=== PATIENT | female | born 1990 | race Caucasian/White ===

== ENCOUNTER 2018-06-06 11:29 | Emergency (ER) | payer OTHER ==
[~2018-06-06] VITALS: Ht 170.2 cm; Wt 149.7 kg
[~2018-06-06 11:29] MED LIST: BACTRIM DS TAB1 EACH PO; NOHOMEMEDICATIONS
[2018-06-06 11:52] LABS: ABSOLUTE BASOPHILS 0.1 thou/uL (0.0-0.2); ABSOLUTE EOSINOPHILS 0.1 thou/uL (0.0-0.7); ABSOLUTE LYMPHOCYTES 2.7 thou/uL (0.8-5.3); ABSOLUTE MONOCYTES 0.6 thou/uL (0.0-1.2); ABSOLUTE NEUTROPHILS 6.8 thou/uL (1.6-8.1); BASOPHILS 0.6 %; EOSINOPHILS 1.4 %; HEMATOCRIT 42.6 % (37.0-47.0); HEMOGLOBIN 14.2 gm/dL (12.0-15.0); LYMPHOCYTES 26.4 %; MCH 29.6 pg (26.0-34.0); MCHC 33.5 g/dL (28.0-37.0); MCV 88.4 fL (80.0-100.0); MONOCYTES 5.6 %; MPV 7.5 fl. (7.2-11.1); NUCLEATED RBCS 0 /100WBC; PLATELET COUNT* 282 thou/uL (150-400); RBC 4.81 mil/uL (4.20-5.00); RDW-CV 13.9 % (10.5-14.5); WBC 10.3 thou/uL (4.0-11.0)
[2018-06-06 12:06] LABS: ANION GAP 10 mmol/L (7-16); BUN 7 mg/dL (7-18); CALCIUM 8.6 mg/dL (8.5-10.1); CHLORIDE 108 mmol/L (98-107); CO2 24 mmol/L (21-32); CREATININE 0.6 mg/dL (0.6-1.3); GLUCOSE 103 mg/dL (70-99); POTASSIUM 3.8 mmol/L (3.5-5.1); SODIUM 142 mmol/L (136-145)
[2018-06-06 12:13] LABS: ALBUMIN 3.3 g/dL (3.4-5.0); ALKALINE PHOSPHATASE 87 U/L (46-116); LIPASE 135 U/L (73-393); MAGNESIUM 2.1 mg/dL (1.8-2.4); SGOT 279 U/L (15-37); SGPT 354 U/L (30-65); TOTAL BILIRUBIN 0.2 mg/dL (<0.1-1.0); TOTAL PROTEIN 7.1 g/dL (6.4-8.2); TROPONIN-I LEVEL <0.06 ng/mL (<0.06)
[2018-06-06 14:40] VITALS: BP 132/83
--- NOTE | 2018-06-07 11:04 | EKG ---
[place] [address] ELECTROCARDIOGRAM REPORT Name: BUTCH VILLAFANA Eli Room: [facility]#: [id number] Admission: 06/06/18 Attend Phys: Discharge: 06/06/18 Date of : [birth year] Report #: [id number] THIS REPORT FOR: //name// [facility] ED Test Date: 2018-06-06 Test Time: 11:32:21 Pat Name: BUTCH VILLAFANA Department: Room: Gender: F Vector Control Assistant: MAREK : 1990 Requested By: Ramesh Hoang Order Number: [id number] MD: Theron Lockhart Measurements Intervals [place] Rate: 101 P: 37 [place]: 149 QRS: 61 QRSD: 101 T: 22 QT: 346 QTc: 449 Interpretive Statements Sinus tachycardia Baseline wander in lead(s) V2 No previous ECG available for comparison Electronically Signed On 06-07-2018 11:04:17 DIGITAL CARTOGRAPHER by Theron Lockhart [email or web address] <ELECTRONICALLY SIGNED> By: Theron Lockhart MD, [facility] 06/07/18 1104 1132 1132 Theron Lockhart MD, FACC /EPI
--- NOTE | 2018-06-07 11:06 | EKG ---
[place] [address] ELECTROCARDIOGRAM REPORT Name: LEDYBUTCH Benitez Room: [facility]#: [id number] Admission: 06/06/18 Attend Phys: Discharge: 06/06/18 Date of : [birth year] Report #: [id number] THIS REPORT FOR: //name// [facility] ED Test Date: 2018-06-06 Test Time: 13:57:21 Pat Name: BUTCH VILLAFANA Department: Room: Gender: F Gang Punch Operator: Crystal COLEMAN : 1990 Requested By: Ramesh Hoang Order Number: [id number] MD: Theron Lockhart Measurements Intervals [place] Rate: 86 P: 6 [place]: 147 QRS: 57 QRSD: 92 T: 19 QT: 392 QTc: 475 Interpretive Statements Sinus rhythm Baseline wander in lead(s) V5 Electronically Signed On 06-07-2018 11:06:36 SPACE CONTROL SUPERVISOR by Theron Lockhart [email or web address] <ELECTRONICALLY SIGNED> By: Theron Lockhart MD, [facility] 06/07/18 1106 1357 1357 Theron Lockhart MD, FACC /EPI
== END 2018-06-06 14:40 ==
LOC: M.ERS 11:29
PROVIDERS: Emergency Medicine Emergency Medical Services
DX: R07.89 Other chest pain (principal); F17.210 Nicotine dependence, cigarettes, uncomplicated

== ENCOUNTER 2018-08-14 16:12 | Emergency (ER) | payer OTHER ==
[~2018-08-14] VITALS: Ht 170.2 cm; Wt 149.7 kg
[2018-08-14] MEDS ORDERED: ACETAMINOPHEN-1 EAC1 PO (16:29)
[2018-08-14] MEDS ORDERED: CLEOCIN HCL300 MG PO (16:29)
[2018-08-14 17:01] VITALS: BP 160/96
== END 2018-08-14 17:02 | disposition home or self-care (01) ==
LOC: M.ERS 16:12
DX: L03.032 Cellulitis of left toe (principal); F17.210 Nicotine dependence, cigarettes, uncomplicated